=== PATIENT | male | born 1975 | race Asian ===

== ENCOUNTER 2016-09-12 08:27 | Emergency (ER) | payer OTHER ==
[2016-09-12 08:39] VITALS: BP 133/84; PULSE 88; TEMP 97.9; BMI 28.3
[2016-09-12] MEDS ORDERED: AMOXICILLIN 500 MG CAPSULE (FP) PO ONE (08:54)
--- NOTE | 2016-09-12 08:58 | PDOC ---
History of Present Illness - General Chief Complaint: Ear Problem Stated Complaint: LEFT EAR ACHE Time Seen by Provider: 09/12/16 08:42 - History of Present Illness Initial Comments: 09/12/16 08:54 40-year-old male with a negative past medical history He is on no medications, NKDA He states that his was recently ill with a viral infection He states that on Monday he developed a sore throat, and some myalgias Today however he developed a left-sided earache He denies any fevers or chills He denies any cough or sputum He denies any nausea vomiting or diarrhea He denies any other symptoms, and the remainder the review of systems is negative Past History - Past Medical History Allergies/Adverse Reactions: Allergies Allergy/AdvReac Type Severity Reaction Status Date / Time No Known Allergies Allergy Verified 09/12/16 08:35 Home Medications: Ambulatory Orders Amoxicillin - [Amoxicillin 500mg Capsule -] 500 mg PO TID #21 capsule 09/12/16 - Psycho/Social/Smoking Cessation Hx Anxiety: No Suicidal Ideation: No Smoking History: Never smoked Information on smoking cessation initiated: No Hx Alcohol Use: No Drug/Substance Use Hx: No Substance Use Type: None *Physical Exam - Vital Signs Last Vital Signs Temp Pulse Resp BP Pulse Ox 97.9 F 88 16 133/84 99 09/12/16 08:36 09/12/16 08:36 09/12/16 08:36 09/12/16 08:36 09/12/16 08:36 - Physical Exam Comments: 09/12/16 08:55 Physical exam Last Vital Signs Temp Pulse Resp BP Pulse Ox 97.9 F 88 16 133/84 99 09/12/16 08:36 09/12/16 08:36 09/12/16 08:36 09/12/16 08:36 09/12/16 08:36 GENERAL: The patient is awake, alert, and fully oriented, and in no apparent distress. HEAD: Normal with no signs of trauma. EYES: Sclera anicteric, conjunctiva normal ENT: The right TM is normal. There is left otitis media noted, with an intact TM Throat is mildly erythematous without exudate NECK: Normal range of motion, supple without lymphadenopathy LUNGS: Breath sounds equal, clear to auscultation bilaterally. No wheezes, and no crackles. HEART: Regular rate and rhythm, normal S1 and S2 without murmur, rub or gallop. ABDOMEN: Soft, nontender, normoactive bowel sounds. No guarding, no rebound. No masses appreciated. NEUROLOGICAL: Cranial nerves II through XII grossly intact. Normal speech, normal gait. Alert and answering questions, grossly nonfocal neurologic exam PSYCH: Normal mood, normal affect. SKIN: Warm, Dry, Medical Decision Making - Medical Decision Making 09/12/16 08:56 Most likely viral URI, but now he has developed left otitis media He states he also had an episode of otitis media last year Will treat with amoxicillin *DC/Admit/Observation/Transfer Diagnosis at time of Disposition: Left otitis media, Upper respiratory tract infection - Discharge Dispostion Disposition: HOME Condition at time of disposition: Good - Patient Instructions Printed Discharge Instructions: Middle Ear Infection, DI for Viral Upper Respiratory Infection -- Adult Additional Instructions: Amoxicillin-one pill 3 times a day Rest, increase fluid intake Tylenol or Motrin if needed for discomfort Followup with your primary care physician in 24-48 hours Return immediately if you worsen in any way Take your medications as directed
[2016-09-12] MEDS ORDERED: AMOXICILLIN 250 MG CAPSULE ONE (09:06)
== END 2016-09-12 09:04 | disposition home or self-care (01) ==
LOC: FER 08:27
DX: J06.9 Acute upper respiratory infection, unspecified (principal); H66.92 Otitis media, unspecified, left ear
CPT/HCPCS: 99282-25